=== PATIENT | male | born 1970 | race Caucasian/White ===

== ENCOUNTER 2018-11-28 22:52 | Emergency (ER) | payer MEDICARE ==
[~2018-11-28 22:52] MED LIST: CLOPIDOGREL BISULFATE 300 MG TABLET ONE; TENECTEPLASE INJ 50 MG KIT IV ONE
[2018-11-28] MEDS ORDERED: ASPIRIN 81 MG TABLET, CHEWABLE PO ONE (23:16)
[2018-11-28 23:38] LABS: ABSOLUTE BASOPHILS # (AUTO) 0.2 10^3/uL (0.0-0.2); ABSOLUTE EOSINOPHILS # (AUTO) 0.3 10^3/uL (0.0-0.6); ABSOLUTE LYMPHOCYTES (AUTO) 5.6 10^3/uL (0.5-4.7); ABSOLUTE MONOCYTES (AUTO) 1.2 10^3/uL (0.1-1.4); ABSOLUTE NEUT (AUTO) 9.1 10^3/uL (1.7-8.2); EOSINOPHILS % (AUTO) 1.6 % (0-6); HEMATOCRIT 43.7 % (37.9-51.0); HEMOGLOBIN 14.9 g/dL (13.5-17.0); LYMPHOCYTES % (AUTO) 34.4 % (13-45); MEAN CORPUSCULAR HEMOGLOBIN 29.3 pg (27.0-33.4); MEAN CORPUSCULAR HGB CONC 34.1 g/dL (32.0-36.0); MEAN CORPUSCULAR VOLUME 86 fl (80-97); MONOCYTES % (AUTO) 7.1 % (3-13); PLATELET COUNT 282 10^3/uL (150-450); RED BLOOD COUNT 5.09 10^6/uL (4.35-5.55); RED CELL DISTRIBUTION WIDTH 12.8 % (11.5-14.0); SEGMENTED NEUTROPHILS % (AUTO) 55.9 % (42-78); TOTAL CELLS COUNTED % (AUTO) 100 %; WHITE BLOOD COUNT 16.2 10^3/uL (4.0-10.5)
--- NOTE | 2018-11-28 23:47 | ER Document Report ---
ED Cardiac - General Chief Complaint: Chest Pain > 30 Stated Complaint: HIGH BLOOD PRESSURE Time Seen by Provider: 11/28/18 23:16 TRAVEL OUTSIDE OF THE [place] IN LAST 30 DAYS: No - HPI Notes: Patient is a 48-year-old male that presents to the emergency department for chief complaint of chest pain. Patient states while sitting at rest around 4 PM this afternoon he started having a substernal and left-sided chest pain. He described it as a tight pain with sharp stabbing pains as well. He reports it radiated to his left shoulder and up the left side of his neck and into his face. He reported an associated headache and shortness of breath. He denied any diaphoresis nausea or vomiting today. Patient believes he has had an TN in the past but never went to a doctor for it. He states that he does check his blood pressure at home and has noticed that it gets elevated from time to time but he is not currently on blood pressure medications. He does state that his mother and siblings have had MIs in their 40s and 50s. He states he had a stress test done many years ago and was recommended to take a baby aspirin daily and that was the last time he had any cardiac evaluation. Currently patient states his chest pain has subsided some from its peak this afternoon but is still present. He did take 5 or 681 mg aspirins throughout the day today. Patient states the pain on the left side of his head and neck has subsided but he still has some aching in his left chest. His shortness of breath has also improved. Past Medical History: Chronic back pain Past Surgical History: L5-S1 fusion Social History: Daily tobacco use. Denies drug and alcohol use Family History: Reviewed and noncontributory for presenting illness Allergies: Reviewed, see documented allergy list. REVIEW OF SYSTEMS: CONSTITUTIONAL : No fever No chills No diaphoresis No recent illness EENT: No vision changes No congestion No sore throat CARDIOVASCULAR: chest pain No palpitations RESPIRATORY: shortness of breath No cough No difficulty breathing GASTROINTESTINAL: No abdominal pain No nausea No vomiting No diarrhea GENITOURINARY: No dysuria No hematuria No difficulty urinating MUSCULOSKELETAL: Neck pain No back pain No leg pain arm pain SKIN: No rashes No lesions LYMPHATIC: No swollen, enlarged glands. NEUROLOGICAL: No lightheadedness No headache No weakness No paresthesias PSYCHIATRIC: No anxiety No depression PHYSICAL EXAMINATION: Vital signs reviewed, nursing noted reviewed. GENERAL: Appears uncomfortable, well-nourished HEAD: Atraumatic, normocephalic. EYES: Eyes appear normal, extraocular movements intact, sclera anicteric, conjunctiva are normal. ENT: nares patent, oropharynx clear without exudates. Moist mucous membranes. NECK: Normal range of motion, supple without lymphadenopathy LUNGS: No chest wall tenderness breath sounds clear to auscultation bilaterally and equal. No wheezes rales or rhonchi. HEART: Regular rate and rhythm without murmurs, +2/4 bilateral radial pulses and DP pulses ABDOMEN: Soft, nontender, normoactive bowel sounds. No rebound, guarding, or rigidity. No masses appreciated. EXTREMITIES: Nontender, good range of motion, no pitting or edema. NEUROLOGICAL: No focal neurological deficits. Moves all extremities spontaneously Motor and sensory grossly intact on exam. PSYCH: Normal mood, normal affect. SKIN: Warm, Dry, normal turgor, no rashes or lesions noted on exposed skin - Related Data Allergies/Adverse Reactions: No Known Allergies Allergy (Unverified 11/28/18 23:47) Past Medical History - Social History Smoking Status: Current Every Day Smoker Family History: CAD, Hypertension Course - Re-evaluation Re-evalutation: 11/29/18 00:13 Vitals reviewed. Nursing notes reviewed. Patient was hypertensive and appeared very uncomfortable upon my initial exam. The symptoms are concerning for acute TN. Patient has ST elevation in lead II and III which is not quite meeting STEM I criteria and has no reciprocal changes however his clinical picture is consistent with acute TN. I reviewed his EKGs with Dr. Augustin who agrees in the setting of patient's clinical picture that his EKG is consistent with acute TN. Recommend patient receive lytics. Patient will be transferred to [facility] for further cardiac care. Accepting physician Dr. Hightower. 11/29/18 00:15 Patient has had almost complete resolution of his chest pain after receiving 2 sublingual nitro. His blood pressure has improved. He will be placed on a nitro drip for continued pain management. Patient also started on heparin and given Plavix. He has taken more than 324 mg of aspirin at home prior to ar [facility]. Patient is stable for transfer and in agreement with plan of care. 11/29/18 00:36 Patient's lab work resulted after he had been transferred. He did have elevated troponin at 3.9 consistent with his acute STEMI Laboratory 11/28/18 11/28/18 11/28/18 23:24 23:24 23:24 WBC 16.2 H RBC 5.09 Hgb 14.9 Hct 43.7 MCV 86 MCH 29.3 MCHC 34.1 RDW 12.8 Plt Count 282 Seg Neutrophils % 55.9 Lymphocytes % 34.4 Monocytes % 7.1 Eosinophils % 1.6 Basophils % 1.0 Absolute Neutrophils 9.1 H Absolute Lymphocytes 5.6 H Absolute Monocytes 1.2 Absolute Eosinophils 0.3 Absolute Basophils 0.2 Sodium Cancelled Potassium Cancelled Chloride Cancelled Carbon Dioxide Cancelled Anion Gap Cancelled BUN Cancelled Creatinine Cancelled Est GFR ( Amer) Cancelled Est GFR (Non-Af Amer) Cancelled Glucose Cancelled Calcium Cancelled Total Bilirubin Cancelled Direct Bilirubin Cancelled Neonat Total Bilirubin Cancelled Neonat Direct Bilirubin Cancelled Neonat Indirect Bili Cancelled AST Cancelled ALT Cancelled Alkaline Phosphatase Cancelled Troponin I Cancelled Total Protein Cancelled Albumin Cancelled 11/28/18 11/28/18 23:45 23:45 WBC RBC Hgb Hct MCV MCH MCHC RDW Plt Count Seg Neutrophils % Lymphocytes % Monocytes % Eosinophils % Basophils % Absolute Neutrophils Absolute Lymphocytes Absolute Monocytes Absolute Eosinophils Absolute Basophils Sodium 135.6 L Potassium 3.9 Chloride 99 Carbon Dioxide 27 Anion Gap 10 BUN 6 L Creatinine 0.54 Est GFR ( Amer) > 60 Est GFR (Non-Af Amer) > 60 Glucose 285 H Calcium 9.3 Total Bilirubin 0.4 Direct Bilirubin 0.2 Neonat Total Bilirubin Not Reportable Neonat Direct Bilirubin Not Reportable Neonat Indirect Bili Not Reportable AST 60 H ALT 49 Alkaline Phosphatase 212 H Troponin I 3.920 Total Protein 7.1 Albumin 4.1 Chest X-Ray 11/28/18 23:16 IMPRESSION: No acute findings. No focal lung consolidation. - Laboratory Result Diagrams: 11/28/18 23:24 11/28/18 23:45 Laboratory results interpreted by me: 11/28/18 11/28/18 23:24 23:45 WBC 16.2 H Absolute Neutrophils 9.1 H Absolute Lymphocytes 5.6 H Sodium 135.6 L BUN 6 L Glucose 285 H AST 60 H Alkaline Phosphatase 212 H - EKG Interpretation by Me Additional EKG results interpreted by me: 11/28/18 23:47 Interpreted by myself [id number]: Sinus tachycardia, rate 102, normal axis, ST elevation in lead II and III with no reciprocal ST depressions 2330: Sinus tachycardia, rate 100, normal axis, no ectopy, no significant change from initial 11/29/18 00:12 Critical Care Note - Critical Care Note Total time excluding time spent on procedures (mins): 35 Comments: Critical care time 35 exclusive from separate billable procedures for a patient requiring complex medical decision making, and high potential for clinical de terioration. Time spent obtaining history from patient or surrogate, discussions with consultants, development of treatment plan with patient or surrogate, evaluation of patient's response to treatment, examination of patient, ordering and performing treatments and interventions, ordering and review of laboratory studies, re-evaluation of patient's condition, ordering and review of radiographic studies and review of old charts Discharge - Discharge Clinical Impression: Chest pain Qualifiers: Chest pain type: unspecified Qualified Code(s): R07.9 - Chest pain, unspecified STEMI (ST elevation myocardial infarction) Qualifiers: Involved coronary artery: other coronary artery Qualified Code(s): I21.29 - ST elevation (STEMI) myocardial infarction involving other sites Condition: Stable Disposition: [facility]
[2018-11-28] MEDS: NITROGLYCERIN 0.4 MG/TAB 25 TAB/BOTTLE SL PRN ×2 (23:48→23:53)
[2018-11-28] MEDS ORDERED: HEPARIN SODIUM,PORCINE/D5W 25,000 UNIT/250 ML RTUINJ IV PRN (23:55)
[2018-11-28] MEDS ORDERED: HEPARIN SOD (PORCINE) 1,000 UNIT/ML 10 ML VIAL IV ONE (23:55)
[2018-11-28] MEDS ORDERED: CLOPIDOGREL BISULFATE 300 MG TABLET PO ONE (23:56)
--- NOTE | 2018-11-29 00:02 | EKG REPORT ---
SEVERITY:- ABNORMAL ECG - SINUS TACHYCARDIA NONSPECIFIC INTRAVENTRICULAR CONDUCTION DELAY INFERIOR INFARCT, OLD CONSIDER POSTERIOR WALL INVOLVEMENT : Confirmed by: Magaly Ovalles 29-Nov-2018 00:00:22
--- NOTE | 2018-11-29 00:03 | EKG REPORT ---
SEVERITY:- ABNORMAL ECG - SINUS TACHYCARDIA NONSPECIFIC INTRAVENTRICULAR CONDUCTION DELAY INFERIOR INFARCT, AGE INDETERMINATE CONSIDER POSTERIOR WALL INVOLVEMENT : Confirmed by: Magaly Ovalles 29-Nov-2018 00:02:03
--- NOTE | 2018-11-29 00:05 | RADIOLOGY REPORT (SQ) ---
EXAM DESCRIPTION: XR CHEST 1 VIEW COMPLETED DATE/TME: 11/28/2018 23:16 CLINICAL HISTORY: 48 years, Male, chest pain Comparison: None FINDINGS: No focal lung consolidation. No pleural effusion. No pneumothorax. Cardiac and mediastinal silhouette is unremarkable. No acute osseous abnormality. Soft tissues are unremarkable. IMPRESSION: No acute findings. No focal lung consolidation.
[2018-11-29] MEDS ORDERED: HEPARIN SOD (PORCINE) 1,000 UNIT/ML 10 ML VIAL ONE (00:10)
[2018-11-29] MEDS ORDERED: NITROGLYCERIN/D5W 50 MG/250 ML RTUINJ IV ONE (00:10)
[2018-11-29] MEDS ORDERED: HEPARIN SODIUM,PORCINE/D5W 25,000 UNIT/250 ML RTUINJ IV ONE (00:10)
[2018-11-29] MEDS ORDERED: NITROGLYCERIN/D5W 50 MG/250 ML RTUINJ IV PRN (00:10)
[2018-11-29 00:20] LABS: ALANINE AMINOTRANSFERASE 49 U/L (21-72); ALBUMIN 4.1 g/dL (3.5-5.0); ALKALINE PHOSPHATASE 212 U/L (38-126); ANION GAP 10 (5-19); ASPARTATE AMINO TRANSFERASE 60 U/L (17-59); BILIRUBIN,DIRECT 0.2 mg/dL (0.0-0.4); BILIRUBIN,TOTAL 0.4 mg/dL (0.2-1.3); BLOOD UREA NITROGEN 6 mg/dL (7-20); CALCIUM 9.3 mg/dL (8.4-10.2); CARBON DIOXIDE 27 mmol/L (22-30); CHLORIDE 99 mmol/L (98-107); GLUCOSE 285 mg/dL (75-110); POTASSIUM 3.9 mmol/L (3.6-5.0); TOTAL PROTEIN 7.1 g/dL (6.3-8.2)
[2018-11-29 00:46] LABS: INTERNATIONAL RATION (INR) 1.03; PROTHROMBIN TIME 13.5 SEC (11.4-15.4)
[2018-11-29 00:47] LABS: PARTIAL THROMBOPLASTIN TIME 24.3 SEC (23.5-35.8)
[2018-11-29] MEDS ORDERED: NITROGLYCERIN 0.4 MG/TAB 25 TAB/BOTTLE SL PRN (00:54)
[2018-11-29] MEDS ORDERED: TENECTEPLASE INJ 50 MG KIT IV ONE (01:00)
[2018-11-29 01:08] VITALS: BP 166/88
[2018-11-29] MEDS ORDERED: HEPARIN SOD (PORCINE) 1,000 UNIT/ML 10 ML VIAL IV PRN (02:56)
== END 2018-11-29 00:35 | disposition short-term general hospital (02) ==
LOC: ER 22:52
DX: I21.3 ST elevation (STEMI) myocardial infarction of unspecified site (principal); I10 Essential (primary) hypertension; R07.2 Precordial pain; R51 Headache; R06.02 Shortness of breath; R00.0 Tachycardia, unspecified; F17.200 Nicotine dependence, unspecified, uncomplicated; Z82.49 Family history of ischemic heart disease and other diseases of the circulatory system
CPT/HCPCS: 93005; 96376; 99291; 96375; 96365; 36415; 85025; 85610; 85730; 80053; 84484; 71045; 93010; J3101 ×2; A9270 ×2; J1644; J3490

== ENCOUNTER → 2020-01-20 | Outpatient (CLI) | payer MEDICARE ==
[~2020-01-20] MED LIST changes: -CLOPIDOGREL BISULFATE 300 MG TABLET ONE; +REGADENOSON INJ 0.4 MG/5 ML DISP.SYRIN IV ONE; -TENECTEPLASE INJ 50 MG KIT IV ONE
--- NOTE | 2020-01-20 13:34 | DRAGON STRESS TEST REPORT ---
Pharmacological nuclear stress test Date: 01/20/2020 Referring physician: Dr. Kameron Wallace Performing physician: Marcus Graff MD Indication: Chest pain Clinical history 50-year-old male with coronary artery disease, inferior STEMI status post drug- eluting stent placement 11/29/2018, systemic hypertension and dyslipidemia who continues to smoke cigarettes presented with episodes of chest pain. We decided to pursue pharmacological nuclear stress test to evaluate for myocardial ischemia as cause of symptoms. Procedure The patient presented to the stress lab. Initially rest images were obtained according to standard protocol after the injection of 15.42 millicurie technetium 99m sestamibi. Subsequently the patient underwent pharmacological stress utilizing 0.4 mg of regadenoson intravenously. The patient's EKG and vital signs were monitored throughout the procedure. Subsequently patient was injected with 46.2 millicuries of technetium 99m sestamibi. After a period of rest, stress images were obtained according to standard protocol. EKG showed sinus rhythm at beats per minute. The patient's stress EKG did not show any evidence for myocardial ischemia. There were no arrhythmias observed. Raw as well as processed rest and stress images were reviewed. There was moderate gut uptake which did not interfere significantly with the study. There is a medium sized, moderately to severely intense partially reversible defect in the inferior and inferolateral wall which could be consistent with myocardial ischemia in the RCA/left circumflex distribution. There is evidence of prior myocardial infarction in the inferior wall. There is mild global hypokinesis post stress. The calculated ejection fraction is 44 %. The TID ratio is 1.18. Conclusion The stress EKG is negative for myocardial ischemia There is a medium sized, moderately to severely intense partially reversible defect in the inferior and inferolateral wall which could be consistent with myocardial ischemia in the RCA/left circumflex distribution. There is mild global hypokinesis. The gated left ventricular ejection fraction is 44 %. The patient will be given an appointment to discuss these results. [facility]
--- NOTE | 2020-01-20 14:32 | XCELERA REPORT ---
[address] [address] Transthoracic Echocardiogram Report Name: LISA GUERRERO Age: 50 yrs Gender: Male : 1970 Patient Status: Outpatient Patient Location: RAD Study Date: 01/20/2020 10:08 AM History: CAD Inferior STEM Chrest pain Height: 72 in Weight: 285 lb BSA: 2.5 m2 Procedure: A complete two-dimensional transthoracic echocardiogram was performed (2D, M-mode, spectral and color flow Doppler). The study was technically difficult with many images being suboptimal in quality. Reason For Study: CP Previous Evaluation: No previous studies were available. History: CAD. CHF. Dyslipidemia. Obesity. Smoker: current. Ordering Physician: LILIAN BOUCHER Performed By: Pb Marquis Interpretation Summary The study was technically difficult with many images being suboptimal in quality. Left ventricular systolic function is normal. The Ejection Fraction estimate is 50-55% The right ventricle is normal in size and function. There is a trace amount of mitral regurgitation There is no aortic valve stenosis There is a trace amount of tricuspid regurgitation There is no pericardial effusion. MMode/2D Measurements & Calculations RVDd: 2.9 cm LVIDd: 5.2 cm FS: 30.2 % Ao root diam: 3.6 cm IVSd: 0.97 cm LVIDs: 3.7 cm EDV(Teich): 132.3 ml Ao root area: 10.1 cm2 LVPWd: 0.99 cm ESV(Teich): 56.7 ml LA dimension: 4.5 cm EF(Teich): 57.1 % Doppler Measurements & Calculations MV E max christiano: MV P1/2t max christiano: Ao V2 max: LV V1 max P.0 cm/sec 84.8 cm/sec 128.5 cm/sec 4.1 mmHg MV A max christiano: MV P1/2t: 102.9 msec Ao max PG: LV V1 max: 95.7 cm/sec MVA(P1/2t): 2.1 cm2 6.6 mmHg 100.9 cm/sec MV E/A: 0.85 MV dec slope: 241.4 cm/sec2 MV dec time: 0.23 sec PA V2 max: MV P1/2t-pr_phl: 140.7 cm/sec 102.9 msec PA max P.9 mmHg Left Ventricle The left ventricle is grossly normal size. There is mild to moderate concentric left ventricular hypertrophy. Left ventricular systolic function is normal. The Ejection Fraction estimate is 50-55%. Doppler measurements suggest impaired left ventricular relaxation, which is associated with grade I/IV or mild diastolic dysfunction. Regional wall motion abnormalities cannot be excluded due to limited visualization. Right Ventricle The right ventricle is normal in size and function. Atria The right atrium is normal. The left atrium is mildly dilated. The interatrial septum is intact with no evidence for an atrial septal defect. There is no Doppler evidence for an interatrial shunt. Mitral Valve The mitral valve is not well visualized. There is no mitral valve stenosis. There is a trace amount of mitral regurgitation. Aortic Valve The aortic valve is not well visualized secondary to technical limitations. The aortic valve opens well. There is no aortic valve stenosis. No aortic regurgitation is present. Tricuspid Valve The tricuspid valve is not well visualized, but is grossly normal. There is a trace amount of tricuspid regurgitation. Tricuspid regurgitation jet envelope not well defined to measure RV systolic pressure accurately. Pulmonic Valve The pulmonic valve is not well visualized. There is a trace or physiologic amount of pulmonic regurgitation. Great Vessels The aortic root is normal size. The inferior vena cava appeared normal and decreased > 50% with respiration (RAP 5-10 mmHg). Effusions There is no pericardial effusion. : LILIAN BOUCHER Anil
== END ==
LOC: RAD 07:43
PROVIDERS: ATTEND Internal Medicine
DX: R07.9 Chest pain, unspecified (principal); I25.10 Atherosclerotic heart disease of native coronary artery without angina pectoris; I11.0 Hypertensive heart disease with heart failure; I50.9 Heart failure, unspecified; R06.00 Dyspnea, unspecified; I42.5 Other restrictive cardiomyopathy; E78.5 Hyperlipidemia, unspecified; E66.9 Obesity, unspecified; F17.210 Nicotine dependence, cigarettes, uncomplicated; I25.2 Old myocardial infarction
CPT/HCPCS: 93306; 93017; 78452; A9500; J2785; Q9969